=== PATIENT | female | born 1955 | race Caucasian/White ===

== ENCOUNTER 2021-07-28 06:47 | Emergency (ER) | payer MEDICARE, OTHER ==
[2021-07-28] MEDS ORDERED: HYDROcodone/Acetaminophen 5/325 mg Tablet ONE (07:20)
== END 2021-07-28 09:34 | disposition home or self-care (01) ==
LOC: CSHERS 06:47
DX: S42.201A Unspecified fracture of upper end of right humerus, initial encounter for closed fracture (principal); I10 Essential (primary) hypertension; Z79.899 Other long term (current) drug therapy; W19.XXXA Unspecified fall, initial encounter
CPT/HCPCS: 70450; 72125

== ENCOUNTER 2021-10-20 13:31 | Outpatient (CLI) | payer MEDICARE, OTHER | END 2021-10-20 13:32 | disposition home or self-care (01) | LOC: CSHULT 13:31 | PROVIDERS: ATTEND Family Medicine | DX: R74.01 Elevation of levels of liver transaminase levels (principal); R93.2 Abnormal findings on diagnostic imaging of liver and biliary tract | CPT/HCPCS: 76705 ==

== ENCOUNTER 2023-07-14 10:50 | Outpatient (CLI) | payer MEDICARE, OTHER | END 2023-07-14 10:51 | disposition home or self-care (01) | LOC: CSHRAD 10:50 | PROVIDERS: ATTEND Surgery | DX: K44.9 Diaphragmatic hernia without obstruction or gangrene (principal); K21.9 Gastro-esophageal reflux disease without esophagitis | CPT/HCPCS: 74220 ==

== ENCOUNTER 2023-11-22 15:18 | Emergency (ER) | payer MEDICARE, OTHER ==
[2023-11-22] MEDS ORDERED: Ketorolac Tromethamine 30 MG (1 mL) VIAL ONE (15:56)
== END 2023-11-22 16:35 | disposition home or self-care (01) ==
LOC: CSHERS 15:18
DX: S42.414A Nondisplaced simple supracondylar fracture without intercondylar fracture of right humerus, initial encounter for closed fracture (principal); I10 Essential (primary) hypertension; W10.9XXA Fall (on) (from) unspecified stairs and steps, initial encounter; Y93.89 Activity, other specified; Z86.73 Personal history of transient ischemic attack (TIA), and cerebral infarction without residual deficits; Z55.0 Illiteracy and low-level literacy
CPT/HCPCS: 29105; 73080; 96372; 99283; J1885